=== PATIENT | male | born 1955 | race Caucasian/White ===

== ENCOUNTER → 2017-04-14 11:42 | Outpatient (CLI) | payer OTHER, SELFPAY | PROVIDERS: Family Provider Student in an Organized Health Care Education/Training Program; PCP Student in an Organized Health Care Education/Training Program; Visit Provider Anesthesiology Pain Medicine | DX: S33.9XXA Sprain of unspecified parts of lumbar spine and pelvis, initial encounter (principal); M51.26 Other intervertebral disc displacement, lumbar region; M96.1 Postlaminectomy syndrome, not elsewhere classified | CPT/HCPCS: 36415; 80320; G0480 ==

== ENCOUNTER → 2017-07-19 12:54 | Outpatient (CLI) | payer OTHER, SELFPAY ==
--- NOTE | 2017-07-19 12:54 | DT_ITS ---
This patient was seen during an EMR downtime July 19, 2017 - July 26, 2017. This patient may have a combination of paper and electronic documentation or all paper documentation. All documentation is viewable within the e-chart portion of G[facility] for each patient visit.
[2017-07-23 18:23] LABS: Amphetamine Urine VISTA NEGATIVE (<1000 ng/mL); Barbiturate Urine VISTA NEGATIVE (< 200 ng/mL); Benzodiazepine Urine VISTA NEGATIVE (< 200 ng/mL); Cocaine Urine VISTA NEGATIVE (< 300 ng/mL); Ecstacy Urine VISTA NEGATIVE (< 500 ng/mL); Methadone Urine VISTA NEGATIVE (< 300 ng/mL); PCP Urine VISTA NEGATIVE (< 25 ng/mL); THC Urine VISTA NEGATIVE (< 50 ng/mL)
== END ==
PROVIDERS: Family Provider Student in an Organized Health Care Education/Training Program; PCP Student in an Organized Health Care Education/Training Program; Visit Provider Anesthesiology Pain Medicine
DX: S33.9XXA Sprain of unspecified parts of lumbar spine and pelvis, initial encounter (principal); M51.26 Other intervertebral disc displacement, lumbar region; M96.1 Postlaminectomy syndrome, not elsewhere classified
CPT/HCPCS: 80307

== ENCOUNTER → 2017-11-17 14:07 | Outpatient (CLI) | payer OTHER, SELFPAY ==
[2017-11-17 16:18] LABS: Amphetamine Urine VISTA NEGATIVE (<1000 ng/mL); Barbiturate Urine VISTA NEGATIVE (< 200 ng/mL); Benzodiazepine Urine VISTA NEGATIVE (< 200 ng/mL); Cocaine Urine VISTA NEGATIVE (< 300 ng/mL); Ecstacy Urine VISTA NEGATIVE (< 500 ng/mL); Methadone Urine VISTA NEGATIVE (< 300 ng/mL); PCP Urine VISTA NEGATIVE (< 25 ng/mL); THC Urine VISTA NEGATIVE (< 50 ng/mL); Vista UDS pH Range 6
== END ==
PROVIDERS: Family Provider Student in an Organized Health Care Education/Training Program; PCP Student in an Organized Health Care Education/Training Program; Referring Provider Anesthesiology Pain Medicine; Visit Provider Anesthesiology Pain Medicine
DX: F11.20 Opioid dependence, uncomplicated (principal)
CPT/HCPCS: 80307

== ENCOUNTER → 2018-08-22 12:13 | Outpatient (CLI) | payer OTHER, SELFPAY ==
[2017-01-27 23:40] VITALS: BMI 29.6
[2018-08-22 12:59] LABS: Amphetamine Urine VISTA NEGATIVE (<1000 ng/mL); Barbiturate Urine VISTA NEGATIVE (< 200 ng/mL); Benzodiazepine Urine VISTA NEGATIVE (< 200 ng/mL); Cocaine Urine VISTA NEGATIVE (< 300 ng/mL); Ecstacy Urine VISTA NEGATIVE (< 500 ng/mL); Methadone Urine VISTA NEGATIVE (< 300 ng/mL); PCP Urine VISTA NEGATIVE (< 25 ng/mL); THC Urine VISTA NEGATIVE (< 50 ng/mL); Vista UDS pH Range 6
== END ==
PROVIDERS: Family Provider Student in an Organized Health Care Education/Training Program; PCP Student in an Organized Health Care Education/Training Program; Referring Provider Anesthesiology Pain Medicine; Visit Provider Anesthesiology Pain Medicine
DX: S33.9XXA Sprain of unspecified parts of lumbar spine and pelvis, initial encounter (principal); M51.26 Other intervertebral disc displacement, lumbar region; M96.1 Postlaminectomy syndrome, not elsewhere classified
CPT/HCPCS: 80307

== ENCOUNTER → 2019-08-09 | Outpatient (CLI) | payer OTHER, SELFPAY ==
[2017-01-27 23:40] VITALS: BMI 29.6
[2019-08-09 12:00] LABS: Amphetamine Urine VISTA NEGATIVE (<1000 ng/mL); Barbiturate Urine VISTA NEGATIVE (< 200 ng/mL); Benzodiazepine Urine VISTA NEGATIVE (< 200 ng/mL); Cocaine Urine VISTA NEGATIVE (< 300 ng/mL); Ecstacy Urine VISTA POSITIVE (< 500 ng/mL); Methadone Urine VISTA NEGATIVE (< 300 ng/mL); PCP Urine VISTA NEGATIVE (< 25 ng/mL); THC Urine VISTA NEGATIVE (< 50 ng/mL); Vista UDS pH Range 6
== END | disposition home or self-care (01) ==
PROVIDERS: PCP Student in an Organized Health Care Education/Training Program; Referring Provider Anesthesiology Pain Medicine; Visit Provider Anesthesiology Pain Medicine
DX: F11.20 Opioid dependence, uncomplicated (principal)
CPT/HCPCS: 80307

== ENCOUNTER 2020-05-24 12:45 | Emergency (ER) | payer OTHER, SELFPAY ==
[2020-05-24 12:45] VITALS: BP 135/85; PULSE 80; RESP 15; TEMP 36.6; O2SAT 99; BMI 30.7
[2020-05-24 13:03] VITALS: BP 114/81; PULSE 82; RESP 16; O2SAT 95
--- NOTE | 2020-05-24 13:08 | US_ITS ---
STUDY: SCROTUM ULTRASOUND REASON FOR EXAM: Male, 64 years old. Painful growth on scrotum TECHNIQUE: Ultrasound evaluation of the scrotum was performed with color Doppler and static branch-scale imaging. COMPARISON: None. FINDINGS: RIGHT TESTICLE INTRATESTICULAR: There is a normal size of the right testicle. The right testicle measures 4.2 x 3.7 x 2.6 cm. There is a homogenous echotexture. There is normal arterial and normal venous vascularity. There is no demonstrated right testicular mass or cyst. EXTRATESTICULAR: The epididymis is normal in size. The epididymis head measures 1.0 x 1.5 x 1.0 cm. There is normal vascularity of the epididymis. There is no demonstrated epididymal cystic structure. There is a small hydrocele. There is no demonstrated varicocele. 5 mm calcification within the right side of the scrotum adjacent to the testicle. LEFT TESTICLE INTRATESTICULAR: There is a normal size of the left testicle. The left testicle measures 5.0 x 3.0 x 2.6 cm. There is a homogenous echotexture. There is normal arterial and normal venous vascularity. There is no demonstrated left testicular mass or cyst. EXTRATESTICULAR: The epididymis is normal in size. The epididymis head measures 0.6 x 1.3 x 0.7 cm. There is normal vascularity of the epididymis. There is no demonstrated epididymal cystic structure. There is a small hydrocele. There is no demonstrated varicocele. There is no demonstrated extratesticular mass or cyst. US/Testicular with Arterial Flow IMPRESSION: 1. No testicular torsion. 2. Small bilateral hydroceles with a 5 mm calcification within the right side of the scrotum. Some swelling in the posterior aspect of scrotum as well. Electronically Signed: Kannan Prasad MD at 14:43 EDT Tel , Service support ,
[2020-05-24] MEDS: Morphine 4 MG/ML Syringe IM (13:26)
[2020-05-24] MEDS: Lidocaine 1% (20 ml mdv) 20 ML Vial INFILT (13:27)
--- NOTE | 2020-05-24 14:39 | ED.VIS.GEN ---
History of Present Illness Chief Complaint: Back Narrative: Patient presenting due to scrotal swelling. The patient states that over the course the last 3 days he has had a painful lump that is grown in size over the inferior portion of his scrotum. Is not really associated with his testicles. Patient states that it has at least doubled or tripled in size. It is tender to touch. He denies any fevers. Denies any history of diabetes or immunosuppression. Additionally patient states that he has chronic back pain that is been somewhat exacerbated recently. He has lumbar radiculopathy with radiation down the left leg. He denies any bowel or bladder incontinence. Denies any fevers chills night sweats unintended weight loss recent injections or surgeries or history of IV drug abuse. He does get spinal injections from pain management, had one around a week ago which does not seem to be helping. Review of systems otherwise negative. Past Medical History - Allergies and Home Meds Allergies/Adverse Reactions: Allergies BEE STINGS Allergy (Uncoded 05/24/20 12:45) Rash Primary Care Physician: Ti Martinez DO [Primary Care Provider] - Prior records reviewed: Yes Past Medical History: - - Hypertension, alcohol abuse, chronic back pain Lives: Spouse/ Significant Other Smoking Status: Current every day smoker Alcohol: Heavy Drugs: None Review of Systems All systems negative except as indicated General: Denies: Chills, Fever, Sweats Eyes: Denies: Visual changes - bilaterally, Diplopia ENT: Denies: Rhinorrhea, Sore throat Cardiovascular: Denies: Chest pain, Palpitations Respiratory: Denies: Dyspnea, Cough, Dyspnea on exertion Gastrointestinal: Denies: Abdominal pain, Nausea, Vomiting, Diarrhea, Melena, Hematochezia Genitourinary: Reports: - - Scrotal pain Musculoskeletal: Reports: Back pain Skin: Denies: Rash, Wounds Neurological: Denies: Headache, Weakness, Numbness Physical Exam Vital Signs/Narrative: Vital Signs Temp Pulse Resp BP Pulse Ox 05/24/20 13:03 82 16 114/81 H 95 05/24/20 12:45 97.8 F 80 15 135/85 H 99 Inital Vital Signs reviewed: Yes General: Well nourished, Well developed, No Acute Distress Head: Normocephalic, Atraumatic Eyes: Perrl, EOMI ENT: Moist mucous membranes, No rhinorrhea Neck: Supple, Nontender Cardiovascular: Regular rate, Regular rhythm, No murmurs Respiratory: No distress, CTA bilaterally, Chest nontender Abdomen: Soft, Nontender, Nondistended, Normal bowel sounds. Negative for: Pulsatile mass : - - exam shows an area of fluctuance at the very base of the patient's scrotum with a overlying pustule. No evidence of subcutaneous emphysema. No lymphangitic streaking. Testicles are nontender and are normal to palpation. Back: Normal Inspection, - - Spinal and paraspinal tenderness Extremities: Nontender, No edema, - - Straight leg raise is positive with reproduction of radiculopathy on the left with raising of the right leg Skin: Normal color, No rash Neurological: Alert, Oriented x3, Cranial nerves II-XII grossly intact, Normal Strength, Normal Sensation, Normal DTR Psychological: Normal affect, Normal Mood Diagnostic/Tx/Re-eval Clinical Impression(s) from Imaging Studies Testicular Ultrasound 05/24/20 13:08 IMPRESSION: 1. No testicular torsion. 2. Small bilateral hydroceles with a 5 mm calcification within the right side of the scrotum. Some swelling in the posterior aspect of scrotum as well. Electronically Signed: Kannan Prasad MD at 14:43 EDT Tel , Service support , - Medical Decision Making Patient presented secondary to scrotal swelling and back pain. His back pain was addressed in the emergency department with IM morphine, this is not out of the normal for his baseline. Scrotal abscess was incised and drained as noted in the procedure note, ultrasound ultimately was found to be negative except for some small hydroceles. Patient will follow-up with urology. Procedures Procedure(s): Patient was consented for incision and drainage of a scrotal abscess. Patient was placed in a supine position. Patient helped hold retraction of his scrotum. Area of the abscess was prepped with a alcohol pad. It was anesthetized using 1% lidocaine, total of 3 cc was utilized. Good anesthesia was obtained. 11 blade was utilized and a very superficial stab incision was made over the area of greatest fluctuance. There was a large amount of foul-smelling purulent drainage. Purulence was expressed, area was irrigated with saline. I did not aggressively probe the area given its location. This will be left open to drain. Patient tolerated this well. ED Disposition - Plan for ED Patient: Disposition: Home or Assisted Living Diagnosis: Scrotal abscess Instructions: ED Abscess Incision And Drainage Referrals: Marshall Siddiqui MD [STAFF PHYSICIAN] - 3-5 Days
[2020-05-24] MEDS: morphine 8 MG/ML Syringe 6 MG IM (15:47)
[2020-05-24 15:51] VITALS: BP 114/76; PULSE 88; RESP 17; O2SAT 96
--- NOTE | 2020-05-24 16:16 | ED.RN ---
SHOT TIME OBSERVED FOR 20 MIN NO REACTION NOTED BY THIS RN, PT D/C
== END 2020-05-24 16:16 | disposition home or self-care (01) ==
PROVIDERS: Emergency Provider Emergency Medicine; PCP Student in an Organized Health Care Education/Training Program
DX: N49.2 Inflammatory disorders of scrotum (principal); F17.200 Nicotine dependence, unspecified, uncomplicated
CPT/HCPCS: 10060; 76870; 93976; 96372; 99282

== ENCOUNTER → 2020-06-26 12:37 | Outpatient (CLI) | payer OTHER, SELFPAY ==
[2020-06-26 13:51] LABS: Amphetamine Urine VISTA NEGATIVE (<1000 ng/mL); Barbiturate Urine VISTA NEGATIVE (< 200 ng/mL); Benzodiazepine Urine VISTA NEGATIVE (< 200 ng/mL); Cocaine Urine VISTA NEGATIVE (< 300 ng/mL); Ecstacy Urine VISTA NEGATIVE (< 500 ng/mL); Methadone Urine VISTA NEGATIVE (< 300 ng/mL); PCP Urine VISTA NEGATIVE (< 25 ng/mL); THC Urine VISTA NEGATIVE (< 50 ng/mL); Vista UDS pH Range 6
== END ==
PROVIDERS: PCP Student in an Organized Health Care Education/Training Program; Referring Provider Anesthesiology Pain Medicine; Visit Provider Anesthesiology Pain Medicine
DX: F11.20 Opioid dependence, uncomplicated (principal)
CPT/HCPCS: 80307

== ENCOUNTER 2021-03-05 13:15 | Outpatient (CLI) | payer OTHER, SELFPAY ==
[2021-03-05 14:29] LABS: Amphetamine Urine VISTA NEGATIVE (<1000 ng/mL); Barbiturate Urine VISTA NEGATIVE (< 200 ng/mL); Benzodiazepine Urine VISTA NEGATIVE (< 200 ng/mL); Cocaine Urine VISTA NEGATIVE (< 300 ng/mL); Ecstacy Urine VISTA NEGATIVE (< 500 ng/mL); Methadone Urine VISTA NEGATIVE (< 300 ng/mL); PCP Urine VISTA NEGATIVE (< 25 ng/mL); THC Urine VISTA NEGATIVE (< 50 ng/mL); Vista UDS pH Range 6
== END 2021-03-05 23:59 | disposition short-term general hospital (02) ==
PROVIDERS: PCP Student in an Organized Health Care Education/Training Program; Referring Provider Anesthesiology Pain Medicine; Visit Provider Anesthesiology Pain Medicine
DX: M96.1 Postlaminectomy syndrome, not elsewhere classified (principal); M51.26 Other intervertebral disc displacement, lumbar region; S33.8XXA Sprain of other parts of lumbar spine and pelvis, initial encounter
CPT/HCPCS: 80307

== ENCOUNTER → 2022-02-20 | Outpatient (CLI) | payer MEDICARE, SELFPAY ==
[2022-02-20 11:29] LABS: Absolute Lymphocyte Count 1.56 X10^3/uL (0.83-4.51); Absolute Neutrophil Count 3.7 X10^3/uL (2.0-7.7); Basophil# 0.06 X10^3/uL; Eosinophil# 0.04 X10^3/uL; Eosinophils% 0.7 % (0-5); Hematocrit 45.2 % (40-54); Hemoglobin 16.1 g/dL (13.0-16.5); Lymphocyte # 1.56 X10^3/ul (0.83-4.51); Lymphocyte % 26.9 % (19-41); Mean Corp Hgb Conc 35.6 g/dL (32-36); Mean Corpuscular Volume 98.3 fL (80-94); Mean Platelet Vol. 11.4 fl (6.2-12.0); Monocyte# 0.42 X10^3/uL; Monocyte% 7.3 % (0-10); NRBC Flagged by Analyzer 0 % (0-5); Neutrophil # 3.69 X10^3/uL (2.7-7.7); Neutrophil % 63.8 % (47-70); Platelet Count 156 K/mm3 (150-450); RBC Distribution Width CV 13.5 % (11.6-14.6); RBC Distribution Width SD 48.4 fl (35.1-43.9); White Blood Count 5.8 K/mm3 (4.4-11.0)
[2022-02-20 12:07] LABS: Erythrocyte Sedimentation Rate 2 mm/hr (0-20)
[2022-02-20 12:11] LABS: ALB/GLOB Ratio 1.3 RATIO (0.9-2.4); AST(SGOT) 52 U/L (15-37); Alanine Aminotransfer ALT/SGPT 60 U/L (16-61); Albumin, Serum 3.8 g/dL (3.2-5.0); Alkaline Phosphatase 38 U/L (45-117); Anion Gap 5 (5-15); BUN 6 mg/dL (7-18); BUN/Creat Ratio 8.4 RATIO (10-20); CRP < 2.90 mg/L (0.0-3.0); Calcium,Total 9.5 mg/dL (8.5-10.1); Chloride 99 mmol/L (98-107); Creatinine, Serum 0.72 mg/dL (0.70-1.30); EST Glomerular Filtration Rate 117 mL/min (>60); Est Glom Filt Rate - Afr Amer 141 mL/min (>60); Globulin 2.9 g/dL (2.2-4.2); Glucose 114 mg/dL (74-106); PSA,Total - Annual Screen 9.23 ng/mL (0.00-4.00); Potassium 3.4 mmol/L (3.5-5.1); Protein, Total 6.7 g/dL (6.4-8.2); Sodium Level 137 mmol/L (136-145); Thyroid Stim Hormone (TSH) 0.44 uIU/mL (0.358-3.74)
== END | disposition home or self-care (01) ==
DX: Z12.5 Encounter for screening for malignant neoplasm of prostate (principal)
CPT/HCPCS: 36415; 80053; 83036; 84153; 84443; 85025; 85652; 86140; G0103

== ENCOUNTER → 2022-03-03 | Outpatient (CLI) | payer OTHER, MEDICARE, SELFPAY ==
[2022-03-03 13:14] LABS: Amphetamine Urine VISTA NEGATIVE (<1000 ng/mL); Barbiturate Urine VISTA NEGATIVE (< 200 ng/mL); Benzodiazepine Urine VISTA NEGATIVE (< 200 ng/mL); Cocaine Urine VISTA NEGATIVE (< 300 ng/mL); Ecstacy Urine VISTA NEGATIVE (< 500 ng/mL); Methadone Urine VISTA NEGATIVE (< 300 ng/mL); PCP Urine VISTA NEGATIVE (< 25 ng/mL); THC Urine VISTA NEGATIVE (< 50 ng/mL); Vista UDS pH Range 6
== END | disposition home or self-care (01) ==
PROVIDERS: PCP Family Medicine; Referring Provider Anesthesiology Pain Medicine; Visit Provider Anesthesiology Pain Medicine
DX: M51.26 Other intervertebral disc displacement, lumbar region (principal); M96.1 Postlaminectomy syndrome, not elsewhere classified
CPT/HCPCS: 80307

== ENCOUNTER → 2022-04-17 | Outpatient (CLI) | payer MEDICARE, SELFPAY ==
[2022-04-17 10:31] LABS: Absolute Lymphocyte Count 1.43 X10^3/uL (0.83-4.51); Absolute Neutrophil Count 4.4 X10^3/uL (2.0-7.7); Basophil# 0.05 X10^3/uL; Basophil% 0.8 % (0-1); Eosinophil# 0.03 X10^3/uL; Eosinophils% 0.5 % (0-5); Hematocrit 41.4 % (40-54); Hemoglobin 14.8 g/dL (13.0-16.5); Lymphocyte # 1.43 X10^3/ul (0.83-4.51); Lymphocyte % 22.2 % (19-41); Mean Corp Hgb Conc 35.7 g/dL (32-36); Mean Corpuscular Volume 97.9 fL (80-94); Mean Platelet Vol. 10.8 fl (6.2-12.0); Monocyte# 0.49 X10^3/uL; Monocyte% 7.6 % (0-10); NRBC Flagged by Analyzer 0 % (0-5); Neutrophil # 4.43 X10^3/uL (2.7-7.7); Neutrophil % 68.6 % (47-70); Platelet Count 143 K/mm3 (150-450); RBC Distribution Width CV 14.4 % (11.6-14.6); RBC Distribution Width SD 52.2 fl (35.1-43.9); Red Blood Count 4.23 M/mm3 (4.6-6.2); White Blood Count 6.5 K/mm3 (4.4-11.0)
[2022-04-17 10:48] LABS: Anion Gap 8 (5-15); BUN 5 mg/dL (7-18); BUN/Creat Ratio 6.4 RATIO (10-20); Calcium,Total 9.2 mg/dL (8.5-10.1); Chloride 97 mmol/L (98-107); Creatinine, Serum 0.78 mg/dL (0.70-1.30); EST Glomerular Filtration Rate 106 mL/min (>60); Est Glom Filt Rate - Afr Amer 128 mL/min (>60); Glucose 128 mg/dL (74-106); Magnesium 1.6 mg/dL (1.6-2.6); Potassium 2.8 mmol/L (3.5-5.1); Sodium Level 134 mmol/L (136-145)
== END | disposition home or self-care (01) ==
LOC: LAB 09:57
DX: R63.4 Abnormal weight loss (principal)
CPT/HCPCS: 36415; 80048; 83735; 85025

== ENCOUNTER 2022-04-20 13:58 | Emergency (ER) | payer MEDICARE, SELFPAY ==
[2022-04-20 13:59] VITALS: BP 108/83; PULSE 74; RESP 14; TEMP 36.3; O2SAT 96; BMI 26.3
--- NOTE | 2022-04-20 14:19 | CT_ITS ---
STUDY: CT CHEST, ABDOMEN T PELVIS WITH CONTRAST REASON FOR EXAM: Male, 66 years old. Weight loss -- smoker, 40Lb wt loss since january, no hx CA RADIATION DOSAGE (If Supplied By Facility): CTDIvol = ( 20.09 ) mGy, DLP = ( 1628.70 ) mGycm TECHNIQUE: Transaxial imaging was performed following intravenous administration of IV 100mL Isovue-300. Individualized dose optimization techniques were used for this CT. COMPARISON: No relevant priors. FINDINGS: CHEST Hyperinflation. Emphysematous changes worse in the upper lobes. Minimal scarring at the lung bases. There is no demonstrated pleural abnormality. There are calcifications of the coronary arteries. There are multiple small lymph nodes within the mediastinum, which are normal in size and morphology most compatible with reactive lymph hyperplasia. Normal hilar regions. Normal unenhanced pulmonary arteries. Normal aorta arch and descending thoracic aorta. There are mild degenerative changes of the thoracic spine. There is no demonstrated abnormality of the visualized upper abdomen. ABDOMEN There is decreased attenuation of the liver consistent with steatosis. Normal gallbladder and extrahepatic biliary system. Normal spleen. Normal pancreas. There is enlargement of the left adrenal gland with a 3 cm hypodense mass within it. There is also evidence of a hyperplasia of the left adrenal gland. Normal right kidney. Normal left kidney. Nonspecific bilateral perinephric stranding. Normal visualized stomach. Normal small intestine. There are multiple colonic diverticula consistent with diverticulosis. The appendix is visualized and appears normal. There is scattered atherosclerotic calcification of the abdominal aorta, without a demonstrated aneurysm. Normal inferior vena cava. Normal retroperitoneum. Normal abdominal wall. There are degenerative changes of the visualized lumbar spine. Prior fusion in the lower lumbar spine. PELVIS Mild degree of diffuse bladder wall thickening worse in the anterior aspect of the bladder. Correlation with cystoscopy is recommended. Normal visualized small intestine. Normal visualized colon. There is no pelvic fluid. There is no pelvic lymphadenopathy or mass lesion. There is diffuse atherosclerotic calcification of the pelvic arteries. CT/CT Chest, Abd, Pel w/Contrast IMPRESSION: Diffuse fatty infiltration of the liver. Left adrenal mass with hypertrophy of the right adrenal. Diffuse bladder wall thickening. Cystoscopy correlation recommended. Electronically Signed: Shamar Castro MD at 15:37 EST ,
--- NOTE | 2022-04-20 14:22 | EDS_ITS ---
HPI History of Present Illness Chief Complaint: Abn Labs Informant: patient Narrative Narrative: Sent in here from his primary physician after receiving blood work which was obtained 3 days ago. Reported low sodium of 134 potassium 2.8. He was seen approximately week ago at the [facility] routine follow-up, reporting them he had unintended weight loss since January 40 pounds he has had a decreased appetite. This been no vomiting or diarrhea. Denies any dysuria however he states he does have urine urgency and decreased output each time. Currently on no medications for blood pressure. At least 1 pack year smoking since he was 16. No recent x-rays. He has never had a colonoscopy. Father had a history of prostate cancer. No colon cancer he is aware of in the family. Denies fevers night sweats or chills. He was sent in here for rule out cancer concerns and outpatient image studies unable to get approved. Prior similar symptoms: No [facility] Medical History Hypertension Home Medications Ranitidine [Zantac] 150 mg PO DAILY 01/27/17 [History Last Taken Unknown] amlodipine 10 mg-valsartan 320 mg tablet 1 ea PO DAILY hypertension 01/27/17 [History Last Taken Unknown] baclofen 10 mg tablet 10 mg PO TID 01/27/17 [History Last Taken Unknown] hydrochlorothiazide 12.5 mg capsule 12.5 mg PO DAILY 01/27/17 [History Last Taken Unknown] amoxicillin 875 mg-potassium clavulanate 125 mg tablet 875 mg PO BID #6 tabs 02/03/17 [Rx Last Taken Unknown] clonidine 0.2 mg/24 hr weekly transdermal patch 0.2 mg TRANSDERM. Q7D #4 patches 02/03/17 [Rx Last Taken Unknown] nicotine 21 mg/24 hr daily transdermal patch 21 mg TRANSDERM. DAILY #28 patches 02/03/17 [Rx Last Taken Unknown] trazodone 50 mg tablet 150 mg PO QHS #30 tabs 02/03/17 [Rx Last Taken Unknown] Allergy/AdvReac Type Severity Reaction Status Date / Time bee venom protein (honey bee) Allergy Rash Verified 04/20/22 14:01 Social History Smoking Status: Current every day smoker tobacco type: cigarettes ROS ROS ED Constitutional Constitutional ED: Reports weight loss; Denies chills, fever(s) or sweats Eyes Eyes: Denies change in vision ENT ENT ED: Denies dysphagia or sore throat Cardiovascular Cardiovascular: Denies chest pain, leg edema, palpitations or racing heartbeat Respiratory/Chest Respiratory/Chest: Denies cough, dyspnea or dyspnea on exertion Gastrointestinal Gastrointestinal: Denies abdominal pain, diarrhea, nausea or vomiting Genitourinary Genitourinary ED: Denies dysuria, hematuria or urinary frequency Musculoskeletal Musculoskeletal: Denies back pain, extremity pain or neck pain Integumentary Denies rash or wounds Neurologic Neurologic: Denies headache(s), paresthesias or weakness EXAM Physical Exam Const Vital Signs: 04/20/22 13:59 04/20/22 14:13 04/20/22 16:00 Temperature 97.3 F L Temperature Source Temporal Pulse Rate 74 67 Respiratory Rate 14 16 Respiratory Effort Normal Non-Labored Respiratory Pattern Normal Blood Pressure 108/83 H 141/96 H Blood Pressure Mean 91 111 Pulse Ox 96 96 Oxygen Delivery Method Room Air Room Air Positive well nourished and well developed General Appearance ED: well developed and NAD HEENT Reports moist mucous membranes normocephalic and atraumatic Eyes PERRL, EOMs intact bilaterally and conjunctivae normal General Eye ED: Yes normal appearance of both eyes Neck no lymphadenopathy and supple General: Negative for tenderness Chest Wall Chest: Negative for tenderness Resp normal respiratory effort and normal air movement Effort and Inspection: symmetric chest movement; Negative for respiratory distress Cardio regular rate, regular rhythm and no murmurs Peripheral Pulses: pulses 2+ throughout GI normal to inspection, nondistended, normoactive bowel sounds and non-tender Palpation: Negative for guarding or rebound tenderness present Back/Spine no CVA tenderness and no thoracic nor lumbar tenderness Extremity normal to inspection General Extremety ED: Negative for edema or tenderness General Extremity: Negative for edema Neuro oriented x3, CN's II-XII intact bilaterally and no sensory deficits noted Sensorium / Orientation: awake and alert Skin no rashes or lesions noted and no wounds MDM MDM MDM Narrative Medical decision making narrative: Interventions / MDM: Differential diagnosis: Unintentional weight loss, cancer, electrolyte abnormalities Diagnosis considered but do not suspect: N/A My EKG interpretation: N/A Imaging independently reviewed and interpreted by myself: CT chest abdomen pelvis with IV contrast: No lung mass, 3 cm left adrenal mass with hyperplasia, bladder thickening, no liver or pancreatic mass no colon mass. External documents reviewed: Review recent blood work 3 days ago sodium 134 potassium 2.8 magnesium 1.6. Calcium was normal. Patient had a PSA back in February that was elevated at 9.2. Test considered but not ordered:N/A ED course: Patient nontoxic vital signs stable. With his recent electrolyte abnormalities I did recheck labs showed improvement 137 potassium 2.9 normal replacement was given. Reports was previously on hydrochlorothiazide recently taken off of this. With his 40 pound weight loss, CT chest abdomen pelvis obtained, no lung masses or adrenal mass and thickening bladder. Patient reports he has an appointment tomorrow with Dr. Patel who is urology through [facility] In addition, I reached out to [facility] who took care of him last week, initially he was refusing urology referral she is happy here he has an appointment tomorrow. He has smoking history therefore cancer differential of the bladder for which further work-up will be needed. Discussed his prostate can be evaluated with a PSA at the same time. She confirms that he is referred to surgery for an outpatient colonoscopy for which she agrees. Outpatient work-up for the adrenal mass will be performed he does note he has a spinal stimulator therefore unable to get an MRI. Patient and daughter in the room updated on the findings. They will keep their appointment tomorrow. Outpatient follow-up for further testing. All questions were answered. Re-evaluation: stable Disposition discussed with patient/family/significant other: Case discussed with consulting clinician: N/A Lab Data Attestation: I reviewed the patient's lab results. Labs: Laboratory Results - last 24 hr 04/20/22 04/20/22 04/20/22 14:15 14:15 14:15 WBC 6.8 RBC 4.18 L Hgb 14.6 Hct 41.7 MCV 99.8 H MCH 34.9 H MCHC 35.0 RDW Std Deviation 53.4 H RDW Coeff of [place] 14.6 Plt Count 145 L MPV 11.1 Immature Gran % (Auto) 0.300 Neut % (Auto) 58.0 Lymph % (Auto) 33.5 [place] % (Auto) 7.0 Eos % (Auto) 0.3 Baso % (Auto) 0.9 Absolute Neuts (auto) 4.0 Absolute Lymphs (auto) 2.29 Nucleated RBC % 0 PT 14.0 INR 1.1 APTT 29.4 Sodium 137 Potassium 2.9 L Chloride 101 Carbon Dioxide 28.0 Anion Gap 8 BUN 5 L Creatinine 0.71 Estim Creat Clear Calc 107.10 Est GFR (MDRD) Af Amer 143 Est GFR (MDRD) Non-Af 118 BUN/Creatinine Ratio 7.0 L Glucose 88 Calcium 9.1 Radiography Diagnostic Testing: Clinical Impression(s) from Imaging Studies Chest/Abdomen/Pelvis CT 04/20/22 14:19 IMPRESSION: Diffuse fatty infiltration of the liver. Left adrenal mass with hypertrophy of the right adrenal. Diffuse bladder wall thickening. Cystoscopy correlation recommended. Electronically Signed: Shamar Castro MD at 15:37 EST , Discharge Plan Triage Chief Complaint: Abn Labs ED Provider: David Choudhary Dx/Rx/DC Orders Clinical Impression: Adrenal mass 1 cm to 4 cm in diameter, Bladder wall thickening, Elevated PSA, Abnormal weight loss, Hypokalemia Instructions: ED Hypokalemia Prescriptions: No Action baclofen 10 MG tablet 10 mg PO TID hydrochlorothiazide 12.5 MG capsule 12.5 mg PO DAILY amlodipine-valsartan 1 EACH tablet 1 ea PO DAILY Ranitidine [Zantac] 150 MG tablet 150 mg PO DAILY trazodone 50 MG tablet 150 mg PO QHS Qty: 30 0RF clonidine 0.2 MG patch 0.2 mg TRANSDERM. Q7D Qty: 4 0RF nicotine 21 MG patch 21 mg TRANSDERM. DAILY Qty: 28 0RF amoxicillin-pot clavulanate 875 MG tablet 875 mg PO BID Qty: 6 0RF Primary Care Provider: Sana Carter Referrals: Sana Carter [Primary Care Provider] - 1 Week Activity Restrictions/Additional Instructions: Your work-up today notes a thickened bladder. You had elevated PSA in February of 9.2. You have a left adrenal mass of 3 cm, hyperplasia of the right adrenal mass. No masses in the lung, no masses of the liver or pancreas are noted on colon. Keep your urology appointment tomorrow for outpatient work-up discussion. You have a referral from your primary for outpatient colonoscopy. Follow-up with your primary center for further work-up of the adrenal mass. Disposition Disposition: Home, Self Care Discharge Date/Time: 04/20/22 16:28
[2022-04-20 14:31] LABS: Absolute Lymphocyte Count 2.29 X10^3/uL (0.83-4.51); Basophil# 0.06 X10^3/uL; Basophil% 0.9 % (0-1); Eosinophil# 0.02 X10^3/uL; Eosinophils% 0.3 % (0-5); Hematocrit 41.7 % (40-54); Hemoglobin 14.6 g/dL (13.0-16.5); Lymphocyte # 2.29 X10^3/ul (0.83-4.51); Lymphocyte % 33.5 % (19-41); Mean Corpuscular Hgb 34.9 pg (27.0-32.0); Mean Corpuscular Volume 99.8 fL (80-94); Mean Platelet Vol. 11.1 fl (6.2-12.0); Monocyte# 0.48 X10^3/uL; NRBC Flagged by Analyzer 0 % (0-5); Neutrophil # 3.97 X10^3/uL (2.7-7.7); Platelet Count 145 K/mm3 (150-450); RBC Distribution Width CV 14.6 % (11.6-14.6); RBC Distribution Width SD 53.4 fl (35.1-43.9); Red Blood Count 4.18 M/mm3 (4.6-6.2); White Blood Count 6.8 K/mm3 (4.4-11.0)
[2022-04-20 14:44] LABS: Anion Gap 8 (5-15); BUN 5 mg/dL (7-18); Calcium,Total 9.1 mg/dL (8.5-10.1); Chloride 101 mmol/L (98-107); Creatinine, Serum 0.71 mg/dL (0.70-1.30); EST Glomerular Filtration Rate 118 mL/min (>60); Est Glom Filt Rate - Afr Amer 143 mL/min (>60); Glucose 88 mg/dL (74-106); Potassium 2.9 mmol/L (3.5-5.1); Sodium Level 137 mmol/L (136-145)
[2022-04-20 14:47] LABS: International Normalized Ratio 1.1
[2022-04-20 14:48] LABS: Partial Thromboplast Time 29.4 Seconds (24.1-36.2)
[2022-04-20 16:00] VITALS: BP 141/96; PULSE 67; RESP 16; O2SAT 96
[2022-04-20] MEDS: Potassium Chloride Oral Tablet 20 MEQ 40 MEQ PO (16:02)
== END 2022-04-20 16:28 | disposition home or self-care (01) ==
PROVIDERS: Emergency Provider Emergency Medicine; Visit Provider Emergency Medicine
DX: E27.9 Disorder of adrenal gland, unspecified (principal); R97.20 Elevated prostate specific antigen [PSA]; R63.4 Abnormal weight loss; E87.6 Hypokalemia; F17.210 Nicotine dependence, cigarettes, uncomplicated; K76.0 Fatty (change of) liver, not elsewhere classified
CPT/HCPCS: 71260; 74177; 80048; 85025; 85610; 85730; 96360; 99284; J7030; Q9967; A4216

== ENCOUNTER → 2022-08-12 | Outpatient (CLI) | payer OTHER, SELFPAY ==
[2022-08-12 12:10] LABS: Amphetamine Urine VISTA NEGATIVE (<1000 ng/mL); Barbiturate Urine VISTA NEGATIVE (< 200 ng/mL); Benzodiazepine Urine VISTA NEGATIVE (< 200 ng/mL); Cocaine Urine VISTA NEGATIVE (< 300 ng/mL); Ecstacy Urine VISTA POSITIVE (< 500 ng/mL); Methadone Urine VISTA NEGATIVE (< 300 ng/mL); PCP Urine VISTA NEGATIVE (< 25 ng/mL); THC Urine VISTA NEGATIVE (< 50 ng/mL); Vista UDS pH Range 6
== END | disposition home or self-care (01) ==
LOC: LAB 10:48
PROVIDERS: PCP Student in an Organized Health Care Education/Training Program; Referring Provider Anesthesiology Pain Medicine; Visit Provider Anesthesiology Pain Medicine
DX: M51.26 Other intervertebral disc displacement, lumbar region (principal); M96.1 Postlaminectomy syndrome, not elsewhere classified
CPT/HCPCS: 80307

== ENCOUNTER → 2023-01-16 | Outpatient (CLI) | payer OTHER, SELFPAY ==
--- NOTE | 2023-01-16 07:43 | CT_ITS ---
INDICATION: INTERVERTEBRAL DISC DISPLACEMENT EXAMINATION: CT LUMBAR SPINE - CT Spine Lumbar W/O Contrast Injection TECHNIQUE: Helically acquired images were obtained of the lumbar spine. 2D reformats were reviewed. A radiation dose optimization technique was used for this scan. IV Contrast dosage and agent: None. RADIATION DOSAGE (If Supplied By Facility): CTDIvol = ( 27.89 ) mGy, DLP = ( 810.43 ) mGycm COMPARISON: No relevant prior comparison study available FINDINGS: VERTEBRAE: No acute fracture. No discrete lytic or blastic abnormality observed. Minimal retrolisthesis of L3 on L4. Posterior lumbar fusion with hardware at L4-5, disc spacer device at L4-5 with bilateral wide laminectomies. DISCS and SPINAL CANAL: Mild loss of disc space height above the fused segment. Central and foraminal stenosis at L3-4 due to circumferential annular bulge and facet joint hypertrophy. VISUALIZED ABDOMEN: Visualized abdominal aorta is not dilated. 2 cm fatty attenuation left adrenal nodule consistent with lipid rich adenoma. CT/Spine Lumbar without Contrast IMPRESSION: Postsurgical changes at L4-5. Lumbar stenosis at L3-4. Electronically Signed: Tee Caba MD at 23:59 EST Reading Location ID and State: [facility] / MD Tel , Service support ,
== END | disposition home or self-care (01) ==
LOC: CT 07:38
PROVIDERS: PCP Student in an Organized Health Care Education/Training Program; Referring Provider Anesthesiology Pain Medicine; Visit Provider Anesthesiology Pain Medicine
DX: M51.26 Other intervertebral disc displacement, lumbar region (principal); M96.1 Postlaminectomy syndrome, not elsewhere classified
CPT/HCPCS: 72131